=== PATIENT | male | born 1945 | race Caucasian/White ===

== ENCOUNTER 2022-01-30 08:35 | Inpatient (IN) ==
[2022-01-30] MEDS ORDERED: ONDANSETRON 4 MG/2 ML VIAL IV PRN (10:37)
[2022-01-30] MEDS: SODIUM CHLORIDE 0.9% 1,000 ML IV SCH ×2 (11:49→20:00)
[2022-01-30 12:18] LABS: Basophils % 0.6 % (0.0-0.8); Hematocrit 42.8 VOL% (42.0-52.0); Hemoglobin 14.4 GM/DL (14.0-18.0); Immature Granulocytes Absolute 0.05 #; Lymphocytes # 0.6 10*3/uL (1.4-4.0); Lymphocytes % 10.9 % (21.2-54.2); Mean Corpuscular HGB Conc 33.6 GM/DL (32-36); Mean Corpuscular Volume 82.5 FL (87-102); Mean Platelet Volume 10.5 FL (9.6-12.0); Monocytes # 0.6 10*3/uL (0.11-0.8); Monocytes % 10.7 % (1.7-12.7); Neutrophils % 76.8 % (38.7-73.9); Platelet Count 173 T/CUMM (130-400); Red Blood Count 5.19 MC/CUMM (3.8-5.5); Red Cell Distribution Width 14.3 % (9.3-17.3); White Blood Count 5.2 T/CUMM (4-12)
[2022-01-30 12:36] LABS: Albumin 3.2 G/DL (3.4-5.0); Bilirubin,Total 0.6 MG/DL (0.20-1.00); Calcium 8.8 MG/DL (8.5-10.1); Osmolality,Calculated 271.2 MOS/KG (273-304); Potassium 3.6 MMOL/L (3.5-5.1)
[2022-01-30 12:38] LABS: Anisocytosis Slight; Band Neutrophils 17 % (0-10); Lymphocytes 13 % (20-55); Platelet Estimate Normal; Total Cells Counted 100
[2022-01-30] MEDS: cefTRIAXone 2,000 MG in SODIUM CHLORIDE 0.9% 100 ML IV SCH (12:57)
[2022-01-30] MEDS ORDERED: SODIUM CHLORIDE 0.9% 1,000 ML IV ONE (13:30)
[2022-01-30] MEDS ORDERED: DEXTROSE 10% 250 ML BAG IV PRN (13:43)
[2022-01-30] MEDS ORDERED: GLUCAGON 1 MG VIAL IM PRN (13:43)
[2022-01-30 14:55] LABS: Bacteria,Urine Occasional /HPF (Few); Bilirubin,Urine Negative (Negative); Blood, Urine Trace mg/dL (Negative); Glucose,Urine (UA) Negative (Negative); Ketones,Urine Trace mg/dL (Negative); Mucus,Urine Occasional /LPF (Occasional); Nitrite,Urine Negative (Negative); Protein,Urine 30 mg/dL (Negative); RBC,Urine 2 /HPF (0-4); Squamous Epithelial Cell,Urine Occasional /HPF (0-10); Urine Appearance Clear (Clear); Urine Color Yellow (Yellow); Urine Specific Gravity > 1.030 (1.001-1.035); Urine Urobilinogen 0.2 eU/dL (<2.0); Urine pH 5.5 (4.5-8.0)
[2022-01-30] MEDS: INSULIN LISPRO 100 UNIT/ML SUBCUT SCH (16:28)
[2022-01-30] MEDS: VANCOMYCIN INJ 1,250 MG in SODIUM CHLORIDE 0.9% 250 ML IV SCH (17:14)
[2022-01-30] MEDS: MELATONIN 3 MG TABLET PO PRN (21:24)
[2022-01-30] MEDS: DOCUSATE SODIUM 100 MG CAPSULE PO SCH (21:24)
[2022-01-30] MEDS: ACETAMINOPHEN 325 MG TABLET PO PRN (21:24)
[2022-01-30] MEDS: ENOXAPARIN 40 MG/0.4 ML SYRINGE SUBCUT SCH (21:24)
[2022-01-30] MEDS: SIMVASTATIN 40 MG TABLET PO SCH (21:24)
[2022-01-31] MEDS: SODIUM CHLORIDE 0.9% 1,000 ML IV SCH ×3 (03:01→20:43)
[2022-01-31 05:28] LABS: Basophils % 0.4 % (0.0-0.8); Hematocrit 39.6 VOL% (42.0-52.0); Hemoglobin 13.2 GM/DL (14.0-18.0); Immature Granulocytes Absolute 0.05 #; Lymphocytes # 0.5 10*3/uL (1.4-4.0); Lymphocytes % 9.7 % (21.2-54.2); Mean Corpuscular HGB Conc 33.3 GM/DL (32-36); Mean Corpuscular Volume 82.5 FL (87-102); Mean Platelet Volume 11.5 FL (9.6-12.0); Monocytes # 0.8 10*3/uL (0.11-0.8); Monocytes % 15.9 % (1.7-12.7); Platelet Count 138 T/CUMM (130-400); Red Cell Distribution Width 14.4 % (9.3-17.3)
[2022-01-31 05:43] LABS: Calcium 8.5 MG/DL (8.5-10.1); Osmolality,Calculated 271.1 MOS/KG (273-304); Potassium 3.4 MMOL/L (3.5-5.1)
[2022-01-31 07:09] LABS: Band Neutrophils 6 % (0-10); Lymphocytes 10 % (20-55); Platelet Estimate Normal; Total Cells Counted 100
[2022-01-31] MEDS: INSULIN LISPRO 100 UNIT/ML SUBCUT SCH ×2 (07:57→17:12)
[2022-01-31] MEDS: DOCUSATE SODIUM 100 MG CAPSULE PO SCH ×2 (09:38→20:42)
[2022-01-31] MEDS: OXYBUTYNIN XL 10 MG TABLET PO SCH (09:38)
[2022-01-31] MEDS: TAMSULOSIN 0.4 MG CAPSULE PO SCH (09:38)
[2022-01-31] MEDS: PANTOPRAZOLE 40 MG TABLET PO SCH (09:38)
[2022-01-31] MEDS: cefTRIAXone 2,000 MG in SODIUM CHLORIDE 0.9% 100 ML IV SCH ×3 (09:39→22:58)
[2022-01-31] MEDS: METOPROLOL SUCCINATE XL 25 MG TABLET PO SCH (09:39)
[2022-01-31] MEDS: ACETAMINOPHEN 325 MG TABLET PO PRN ×2 (09:57→17:47)
[2022-01-31 10:10] LABS: PT Patient Result 11.4 SECS (10.1-12.1)
[2022-01-31 13:27] LABS: Glucose,CSF 77 MG/DL (40-70)
[2022-01-31 13:53] LABS: Appearance,CSF Clear; Lymphocytes,CSF 42 %; Monocytes,CSF 58 %; Red Blood Cell,CSF < 1 C/CUMM; White Blood Cell,CSF 2 C/CUMM
[2022-01-31] MEDS: AMPICILLIN INJ 2,000 MG in SODIUM CHLORIDE 0.9% 100 ML IV SCH ×4 (14:47→22:58)
[2022-01-31] MEDS: ACYCLOVIR INJ 700 MG in SODIUM CHLORIDE 0.9% 250 ML IV SCH ×2 (14:47→20:43)
[2022-01-31] MEDS: VANCOMYCIN INJ 1,250 MG in SODIUM CHLORIDE 0.9% 250 ML IV SCH (17:45)
[2022-01-31] MEDS: SIMVASTATIN 40 MG TABLET PO SCH (20:42)
[2022-02-01] MEDS: AMPICILLIN INJ 2,000 MG in SODIUM CHLORIDE 0.9% 100 ML IV SCH ×6 (02:36→22:11)
[2022-02-01] MEDS: ACYCLOVIR INJ 700 MG in SODIUM CHLORIDE 0.9% 250 ML IV SCH ×3 (02:36→18:36)
[2022-02-01 03:23] LABS: Basophils % 0.4 % (0.0-0.8); Hematocrit 35.9 VOL% (42.0-52.0); Hemoglobin 12.1 GM/DL (14.0-18.0); Immature Granulocytes % 0.6 %; Immature Granulocytes Absolute 0.03 #; Lymphocytes # 0.6 10*3/uL (1.4-4.0); Lymphocytes % 11.7 % (21.2-54.2); Mean Corpuscular HGB Conc 33.7 GM/DL (32-36); Mean Corpuscular Volume 81.8 FL (87-102); Mean Platelet Volume 11.5 FL (9.6-12.0); Monocytes # 0.8 10*3/uL (0.11-0.8); Monocytes % 14.9 % (1.7-12.7); Neutrophils % 72.4 % (38.7-73.9); Platelet Count 130 T/CUMM (130-400); Red Blood Count 4.39 MC/CUMM (3.8-5.5); Red Cell Distribution Width 14.5 % (9.3-17.3)
[2022-02-01 03:40] LABS: Albumin 2.3 G/DL (3.4-5.0); Bilirubin,Total 0.4 MG/DL (0.20-1.00); Calcium 7.3 MG/DL (8.5-10.1); Osmolality,Calculated 277.5 MOS/KG (273-304); Phosphorous 2.8 MG/DL (2.5-4.9); Potassium 3.4 MMOL/L (3.5-5.1); Total Protein 5.6 G/DL (6.4-8.2)
[2022-02-01 03:55] LABS: Band Neutrophils 8 % (0-10); Eosinophils 1 % (0-10); Lymphocytes 8 % (20-55); Total Cells Counted 100
[2022-02-01 03:56] LABS: Microcytosis Slight
[2022-02-01] MEDS ORDERED: MAGNESIUM SULF RIDER 2 GM/50 ML PREMIX IV PRN (04:04)
[2022-02-01] MEDS ORDERED: MAGNESIUM SULF RIDER 4 GM/100 ML PREMIX IV PRN (04:04)
[2022-02-01] MEDS: SODIUM CHLORIDE 0.9% 1,000 ML IV SCH (04:54)
[2022-02-01] MEDS: VANCOMYCIN INJ 1,250 MG in SODIUM CHLORIDE 0.9% 250 ML IV SCH (04:55)
[2022-02-01] MEDS: PANTOPRAZOLE 40 MG TABLET PO SCH (06:32)
[2022-02-01] MEDS: POTASSIUM CHLORIDE 20 MEQ TABLET PO PRN ×3 (07:45→12:30)
[2022-02-01] MEDS: INSULIN LISPRO 100 UNIT/ML SUBCUT SCH ×2 (07:58→17:02)
[2022-02-01] MEDS: METOPROLOL SUCCINATE XL 25 MG TABLET PO SCH (08:23)
[2022-02-01] MEDS: OXYBUTYNIN XL 10 MG TABLET PO SCH (08:24)
[2022-02-01] MEDS: DOCUSATE SODIUM 100 MG CAPSULE PO SCH ×2 (08:24→21:00)
[2022-02-01] MEDS: TAMSULOSIN 0.4 MG CAPSULE PO SCH (08:24)
[2022-02-01] MEDS: cefTRIAXone 2,000 MG in SODIUM CHLORIDE 0.9% 100 ML IV SCH ×2 (11:40→21:00)
[2022-02-01] MEDS ORDERED: FUROSEMIDE 40 MG/4 ML VIAL IV ONE ×2 (14:35→21:00)
[2022-02-01] MEDS ORDERED: FUROSEMIDE 40 MG/4 ML VIAL ONE (14:36)
[2022-02-01] MEDS: ACETAMINOPHEN 325 MG TABLET PO PRN ×2 (15:14→23:44)
[2022-02-01] MEDS: ENOXAPARIN 40 MG/0.4 ML SYRINGE SUBCUT SCH (21:01)
[2022-02-01 21:56] LABS: Bacteria,Urine Occasional /HPF (Few); Bilirubin,Urine Negative (Negative); Blood, Urine Trace mg/dL (Negative); Glucose,Urine (UA) Negative (Negative); Ketones,Urine Negative (Negative); Mucus,Urine Occasional /LPF (Occasional); Nitrite,Urine Negative (Negative); Protein,Urine 30 mg/dL (Negative); RBC,Urine <1 /HPF (0-4); Squamous Epithelial Cell,Urine Occasional /HPF (0-10); Urine Appearance Clear (Clear); Urine Color Yellow (Yellow)
[2022-02-01 21:57] LABS: Urine Urobilinogen 0.2 eU/dL (<2.0)
[2022-02-02] MEDS: ACYCLOVIR INJ 700 MG in SODIUM CHLORIDE 0.9% 250 ML IV SCH ×3 (02:19→18:07)
[2022-02-02] MEDS: AMPICILLIN INJ 2,000 MG in SODIUM CHLORIDE 0.9% 100 ML IV SCH ×6 (02:19→22:09)
[2022-02-02 04:30] LABS: Albumin 2.1 G/DL (3.4-5.0); Basophils % 0.3 % (0.0-0.8); Bilirubin,Total 0.4 MG/DL (0.20-1.00); Calcium 7.3 MG/DL (8.5-10.1); Hematocrit 36.2 VOL% (42.0-52.0); Hemoglobin 11.8 GM/DL (14.0-18.0); Immature Granulocytes % 0.3 %; Immature Granulocytes Absolute 0.02 #; Mean Corpuscular HGB Conc 32.6 GM/DL (32-36); Mean Corpuscular Volume 83.8 FL (87-102); Mean Platelet Volume 12.3 FL (9.6-12.0); Monocytes # 1.1 10*3/uL (0.11-0.8); Neutrophils % 68.4 % (38.7-73.9); Osmolality,Calculated 276.8 MOS/KG (273-304); Phosphorous 3.1 MG/DL (2.5-4.9); Platelet Count 120 T/CUMM (130-400); Potassium 2.9 MMOL/L (3.5-5.1); Red Blood Count 4.32 MC/CUMM (3.8-5.5); Red Cell Distribution Width 14.6 % (9.3-17.3); Total Protein 5.4 G/DL (6.4-8.2); White Blood Count 6.8 T/CUMM (4-12)
[2022-02-02 04:35] LABS: Band Neutrophils 2 % (0-10); Eosinophils 1 % (0-10); Hypochromia Slight; Lymphocytes 15 % (20-55); Microcytosis Slight; Total Cells Counted 100
[2022-02-02 04:36] LABS: Atypical Lymphocytes Few; Platelet Estimate Adequate
[2022-02-02] MEDS: POTASSIUM CHLORIDE 20 MEQ TABLET PO PRN ×4 (04:46→11:30)
[2022-02-02] MEDS: PANTOPRAZOLE 40 MG TABLET PO SCH (06:35)
[2022-02-02] MEDS: INSULIN LISPRO 100 UNIT/ML SUBCUT SCH ×2 (07:34→16:46)
[2022-02-02] MEDS: TAMSULOSIN 0.4 MG CAPSULE PO SCH (08:49)
[2022-02-02] MEDS: DOCUSATE SODIUM 100 MG CAPSULE PO SCH ×2 (08:49→20:49)
[2022-02-02] MEDS: METOPROLOL SUCCINATE XL 25 MG TABLET PO SCH (08:50)
[2022-02-02] MEDS: OXYBUTYNIN XL 10 MG TABLET PO SCH (08:50)
[2022-02-02] MEDS: cefTRIAXone 2,000 MG in SODIUM CHLORIDE 0.9% 100 ML IV SCH ×2 (09:38→22:08)
[2022-02-02] MEDS: ACETAMINOPHEN 325 MG TABLET PO PRN (09:42)
[2022-02-02] MEDS ORDERED: FUROSEMIDE 40 MG/4 ML VIAL IV ONE (10:38)
[2022-02-02] MEDS: LEVOFLOXACIN INJ 500 MG/100 ML PREMIX IV SCH (11:07)
[2022-02-02] MEDS ORDERED: ALUMINUM/MAGNES/SIMETH MAX STR 30 ML UDCUP PO PRN (17:43)
[2022-02-02] MEDS: DIAZEPAM 5 MG TABLET PO PRN (18:06)
[2022-02-02] MEDS: ENOXAPARIN 40 MG/0.4 ML SYRINGE SUBCUT SCH (20:49)
[2022-02-03] MEDS: ACYCLOVIR INJ 700 MG in SODIUM CHLORIDE 0.9% 250 ML IV SCH ×3 (02:04→18:16)
[2022-02-03] MEDS: AMPICILLIN INJ 2,000 MG in SODIUM CHLORIDE 0.9% 100 ML IV SCH ×3 (02:04→11:29)
[2022-02-03] MEDS: DIAZEPAM 5 MG TABLET PO PRN ×2 (02:06→08:21)
[2022-02-03 03:17] LABS: ABG Base Excess 2.9 MMOL/L (-2.5-2.5); ABG HCO3 26.9 MMOL/L (20-26); ABG Oxygen Saturation 93.9 % (95-100); ABG PCO2 35.7 MM HG (35-48); ABG PH 7.475 (7.35-7.45); ABG PO2 70.2 MM HG (80-95)
[2022-02-03 04:51] LABS: Basophils % 0.4 % (0.0-0.8); Eosinophils % 0.1 % (0.00-10.9); Hematocrit 41.6 VOL% (42.0-52.0); Hemoglobin 13.9 GM/DL (14.0-18.0); Immature Granulocytes % 0.7 %; Immature Granulocytes Absolute 0.07 #; Lymphocytes # 1.2 10*3/uL (1.4-4.0); Lymphocytes % 11.5 % (21.2-54.2); Mean Corpuscular HGB Conc 33.4 GM/DL (32-36); Mean Corpuscular Volume 82.1 FL (87-102); Mean Platelet Volume 12.7 FL (9.6-12.0); Monocytes # 1.3 10*3/uL (0.11-0.8); Neutrophils % 74.3 % (38.7-73.9); Red Blood Count 5.07 MC/CUMM (3.8-5.5); Red Cell Distribution Width 14.4 % (9.3-17.3); White Blood Count 10.1 T/CUMM (4-12)
[2022-02-03 04:59] LABS: Platelet Count 115 T/CUMM (130-400)
[2022-02-03 05:12] LABS: Albumin 2.2 G/DL (3.4-5.0); Bilirubin,Total 0.6 MG/DL (0.20-1.00); Calcium 8.2 MG/DL (8.5-10.1); Osmolality,Calculated 269.2 MOS/KG (273-304); Phosphorous 2.1 MG/DL (2.5-4.9); Potassium 3.3 MMOL/L (3.5-5.1); Total Protein 6.4 G/DL (6.4-8.2)
[2022-02-03] MEDS ORDERED: FUROSEMIDE 100 MG/10 ML VIAL ONE (05:49)
[2022-02-03] MEDS ORDERED: FUROSEMIDE 40 MG/4 ML VIAL IV ONE (05:49)
[2022-02-03] MEDS: guaiFENesin 200 MG/10 ML UDCUP PO PRN ×2 (06:37→13:20)
[2022-02-03] MEDS: POTASSIUM CHLORIDE 20 MEQ TABLET PO PRN ×5 (06:37→22:03)
[2022-02-03] MEDS: PANTOPRAZOLE 40 MG TABLET PO SCH (06:37)
[2022-02-03] MEDS: ALBUTEROL/IPRATROPIUM 3 ML NEB RESP TX SCH ×3 (07:20→18:52)
[2022-02-03] MEDS: LEVALBUTEROL 1.25 MG/3 ML NEB RESP TX ONE ×2 (07:20→11:30)
[2022-02-03] MEDS: TAMSULOSIN 0.4 MG CAPSULE PO SCH (08:17)
[2022-02-03] MEDS: METOPROLOL SUCCINATE XL 25 MG TABLET PO SCH (08:17)
[2022-02-03] MEDS: OXYBUTYNIN XL 10 MG TABLET PO SCH (08:17)
[2022-02-03] MEDS: INSULIN LISPRO 100 UNIT/ML SUBCUT SCH ×2 (08:17→16:13)
[2022-02-03] MEDS: DOCUSATE SODIUM 100 MG CAPSULE PO SCH ×2 (08:18→20:37)
[2022-02-03] MEDS: cefTRIAXone 2,000 MG in SODIUM CHLORIDE 0.9% 100 ML IV SCH (09:38)
[2022-02-03] MEDS: LEVOFLOXACIN INJ 500 MG/100 ML PREMIX IV SCH (11:29)
[2022-02-03] MEDS: ENOXAPARIN 40 MG/0.4 ML SYRINGE SUBCUT SCH (20:37)
[2022-02-03 22:47] LABS: M. Tuberculosis PCR Result Negative (Negative); M. Tuberculosis PCR Source CSF
[2022-02-04] MEDS: ALBUTEROL/IPRATROPIUM 3 ML NEB RESP TX SCH ×4 (00:26→19:00)
[2022-02-04] MEDS: ACYCLOVIR INJ 700 MG in SODIUM CHLORIDE 0.9% 250 ML IV SCH ×3 (02:12→18:14)
[2022-02-04 03:22] LABS: Arterial Base Excess iSTAT -1 MMOL/L (-2.5-2.5); Arterial Bicarbonate iSTAT 22.5 MMOL/L (20-26); Arterial O2 Saturation iSTAT 97 % (95-100); Arterial PCO2 iSTAT 33 MM HG (35-48); Arterial PO2 iSTAT 90 MM HG (80-95); Arterial Total CO2 iSTAT 23 MMO/L (23-27); Arterial pH iSTAT 7.443 (7.35-7.45)
[2022-02-04 03:51] LABS: Basophils % 0.3 % (0.0-0.8); Hematocrit 37.9 VOL% (42.0-52.0); Hemoglobin 12.5 GM/DL (14.0-18.0); Immature Granulocytes % 0.7 %; Immature Granulocytes Absolute 0.08 #; Lymphocytes # 1.2 10*3/uL (1.4-4.0); Lymphocytes % 10.6 % (21.2-54.2); Mean Corpuscular Volume 83.7 FL (87-102); Mean Platelet Volume 12.5 FL (9.6-12.0); Monocytes # 1.3 10*3/uL (0.11-0.8); Monocytes % 11.2 % (1.7-12.7); Neutrophils % 77.2 % (38.7-73.9); Platelet Count 225 T/CUMM (130-400); Red Blood Count 4.53 MC/CUMM (3.8-5.5); Red Cell Distribution Width 14.6 % (9.3-17.3); White Blood Count 11.6 T/CUMM (4-12)
[2022-02-04 04:13] LABS: Potassium 3.7 MMOL/L (3.5-5.1)
[2022-02-04] MEDS: LEVOFLOXACIN 750 MG TABLET PO SCH (08:10)
[2022-02-04] MEDS: METOPROLOL SUCCINATE XL 25 MG TABLET PO SCH (08:10)
[2022-02-04] MEDS: amLODIPine 10 MG TABLET PO SCH (08:10)
[2022-02-04] MEDS: TAMSULOSIN 0.4 MG CAPSULE PO SCH (08:10)
[2022-02-04] MEDS: DOCUSATE SODIUM 100 MG CAPSULE PO SCH ×2 (08:10→20:44)
[2022-02-04] MEDS: PANTOPRAZOLE 40 MG TABLET PO SCH (08:10)
[2022-02-04] MEDS: OXYBUTYNIN XL 10 MG TABLET PO SCH (08:10)
[2022-02-04] MEDS: POLYETHYLENE GLYCOL POWDER 17 GM PACK PO SCH (08:12)
[2022-02-04] MEDS: POTASSIUM CHLORIDE 20 MEQ TABLET PO PRN (08:20)
[2022-02-04] MEDS: INSULIN LISPRO 100 UNIT/ML SUBCUT SCH ×2 (08:22→16:11)
[2022-02-04] MEDS ORDERED: FUROSEMIDE 40 MG/4 ML VIAL IV ONE (12:38)
[2022-02-04] MEDS: SIMVASTATIN 40 MG TABLET PO SCH (20:44)
[2022-02-04] MEDS: ENOXAPARIN 40 MG/0.4 ML SYRINGE SUBCUT SCH (20:44)
[2022-02-05] MEDS: ALBUTEROL/IPRATROPIUM 3 ML NEB RESP TX SCH ×4 (00:40→20:32)
[2022-02-05] MEDS: ACYCLOVIR INJ 700 MG in SODIUM CHLORIDE 0.9% 250 ML IV SCH ×3 (03:58→18:41)
[2022-02-05 06:22] LABS: Hematocrit 38.2 VOL% (42.0-52.0); Hemoglobin 12.3 GM/DL (14.0-18.0); Mean Corpuscular HGB Conc 32.2 GM/DL (32-36); Mean Corpuscular Volume 83.4 FL (87-102); Platelet Count 238 T/CUMM (130-400); Red Blood Count 4.58 MC/CUMM (3.8-5.5); Red Cell Distribution Width 14.4 % (9.3-17.3); White Blood Count 9.9 T/CUMM (4-12)
[2022-02-05 06:23] LABS: Basophils % 0.4 % (0.0-0.8); Immature Granulocytes % 1.3 %; Immature Granulocytes Absolute 0.13 #; Lymphocytes # 1.2 10*3/uL (1.4-4.0); Lymphocytes % 12.1 % (21.2-54.2); Mean Platelet Volume 12.2 FL (9.6-12.0); Monocytes # 1.2 10*3/uL (0.11-0.8); Monocytes % 12.4 % (1.7-12.7); Neutrophils % 73.8 % (38.7-73.9)
[2022-02-05 06:43] LABS: Albumin 2.2 G/DL (3.4-5.0); Bilirubin,Total 0.6 MG/DL (0.20-1.00); Calcium 8.2 MG/DL (8.5-10.1); Osmolality,Calculated 276.8 MOS/KG (273-304); Potassium 3.7 MMOL/L (3.5-5.1); Total Protein 6.5 G/DL (6.4-8.2)
[2022-02-05] MEDS: PANTOPRAZOLE 40 MG TABLET PO SCH (07:58)
[2022-02-05] MEDS: DOCUSATE SODIUM 100 MG CAPSULE PO SCH ×2 (07:59→22:14)
[2022-02-05] MEDS: INSULIN LISPRO 100 UNIT/ML SUBCUT SCH ×2 (07:59→16:49)
[2022-02-05] MEDS: OXYBUTYNIN XL 10 MG TABLET PO SCH (07:59)
[2022-02-05] MEDS: amLODIPine 10 MG TABLET PO SCH (08:00)
[2022-02-05] MEDS: LEVOFLOXACIN 750 MG TABLET PO SCH (08:00)
[2022-02-05] MEDS: TAMSULOSIN 0.4 MG CAPSULE PO SCH (08:00)
[2022-02-05] MEDS: METOPROLOL SUCCINATE XL 25 MG TABLET PO SCH (08:01)
[2022-02-05] MEDS: POTASSIUM CHLORIDE 20 MEQ TABLET PO PRN (08:01)
[2022-02-05] MEDS: POLYETHYLENE GLYCOL POWDER 17 GM PACK PO SCH (08:12)
[2022-02-05] MEDS: lisinopriL 10 MG TABLET PO SCH (08:35)
[2022-02-05] MEDS: metFORMIN 500 MG TABLET PO SCH ×2 (08:35→22:10)
[2022-02-05] MEDS: SIMVASTATIN 40 MG TABLET PO SCH (22:10)
[2022-02-05] MEDS: ENOXAPARIN 40 MG/0.4 ML SYRINGE SUBCUT SCH (22:14)
[2022-02-06] MEDS: ALBUTEROL/IPRATROPIUM 3 ML NEB RESP TX SCH ×4 (00:45→19:24)
[2022-02-06] MEDS: ACYCLOVIR INJ 700 MG in SODIUM CHLORIDE 0.9% 250 ML IV SCH ×3 (03:36→18:55)
[2022-02-06 06:03] LABS: Basophils # 0.1 10*3/uL (0.0-0.2); Basophils % 0.6 % (0.0-0.8); Hematocrit 36.1 VOL% (42.0-52.0); Hemoglobin 11.9 GM/DL (14.0-18.0); Lymphocytes # 1.6 10*3/uL (1.4-4.0); Lymphocytes % 16.3 % (21.2-54.2); Mean Corpuscular Volume 82.6 FL (87-102); Mean Platelet Volume 11.2 FL (9.6-12.0); Monocytes # 1.5 10*3/uL (0.11-0.8); Neutrophils % 66.1 % (38.7-73.9); Platelet Count 386 T/CUMM (130-400); Red Blood Count 4.37 MC/CUMM (3.8-5.5); Red Cell Distribution Width 14.9 % (9.3-17.3)
[2022-02-06 06:39] LABS: Calcium 8.6 MG/DL (8.5-10.1); Osmolality,Calculated 276.7 MOS/KG (273-304); Potassium 3.7 MMOL/L (3.5-5.1)
[2022-02-06] MEDS: INSULIN LISPRO 100 UNIT/ML SUBCUT SCH ×2 (07:40→16:02)
[2022-02-06] MEDS: OXYBUTYNIN XL 10 MG TABLET PO SCH (08:29)
[2022-02-06] MEDS: lisinopriL 10 MG TABLET PO SCH (08:29)
[2022-02-06] MEDS: LEVOFLOXACIN 750 MG TABLET PO SCH (08:29)
[2022-02-06] MEDS: DOCUSATE SODIUM 100 MG CAPSULE PO SCH ×2 (08:29→20:15)
[2022-02-06] MEDS: metFORMIN 500 MG TABLET PO SCH ×2 (08:30→20:15)
[2022-02-06] MEDS: METOPROLOL SUCCINATE XL 25 MG TABLET PO SCH (08:30)
[2022-02-06] MEDS: PANTOPRAZOLE 40 MG TABLET PO SCH (08:30)
[2022-02-06] MEDS: TAMSULOSIN 0.4 MG CAPSULE PO SCH (08:30)
[2022-02-06] MEDS: amLODIPine 10 MG TABLET PO SCH (08:30)
[2022-02-06] MEDS: POLYETHYLENE GLYCOL POWDER 17 GM PACK PO SCH (08:42)
[2022-02-06] MEDS: ENOXAPARIN 40 MG/0.4 ML SYRINGE SUBCUT SCH (20:15)
[2022-02-06] MEDS: SIMVASTATIN 40 MG TABLET PO SCH (20:15)
[2022-02-07] MEDS: ALBUTEROL/IPRATROPIUM 3 ML NEB RESP TX SCH ×4 (00:34→19:05)
[2022-02-07] MEDS: ACYCLOVIR INJ 700 MG in SODIUM CHLORIDE 0.9% 250 ML IV SCH ×3 (03:13→20:35)
[2022-02-07 05:57] LABS: Calcium 8.4 MG/DL (8.5-10.1); Osmolality,Calculated 279.4 MOS/KG (273-304); Potassium 3.7 MMOL/L (3.5-5.1)
[2022-02-07] MEDS: INSULIN LISPRO 100 UNIT/ML SUBCUT SCH ×2 (08:26→18:48)
[2022-02-07] MEDS: OXYBUTYNIN XL 10 MG TABLET PO SCH (09:21)
[2022-02-07] MEDS: lisinopriL 10 MG TABLET PO SCH (09:22)
[2022-02-07] MEDS: metFORMIN 500 MG TABLET PO SCH ×2 (09:22→20:36)
[2022-02-07] MEDS: TAMSULOSIN 0.4 MG CAPSULE PO SCH (09:22)
[2022-02-07] MEDS: amLODIPine 10 MG TABLET PO SCH (09:22)
[2022-02-07] MEDS: PANTOPRAZOLE 40 MG TABLET PO SCH (09:22)
[2022-02-07] MEDS: LEVOFLOXACIN 750 MG TABLET PO SCH (09:22)
[2022-02-07] MEDS: METOPROLOL SUCCINATE XL 25 MG TABLET PO SCH (09:22)
[2022-02-07] MEDS: POLYETHYLENE GLYCOL POWDER 17 GM PACK PO SCH (09:24)
[2022-02-07] MEDS: DOCUSATE SODIUM 100 MG CAPSULE PO SCH ×2 (09:24→20:36)
[2022-02-07] MEDS: guaiFENesin 200 MG/10 ML UDCUP PO PRN (20:36)
[2022-02-07] MEDS: SIMVASTATIN 40 MG TABLET PO SCH (20:36)
[2022-02-07] MEDS: ENOXAPARIN 40 MG/0.4 ML SYRINGE SUBCUT SCH (20:37)
[2022-02-08] MEDS: ALBUTEROL/IPRATROPIUM 3 ML NEB RESP TX SCH ×4 (00:23→19:25)
[2022-02-08] MEDS: ACYCLOVIR INJ 700 MG in SODIUM CHLORIDE 0.9% 250 ML IV SCH ×3 (02:53→18:03)
[2022-02-08] MEDS: guaiFENesin 200 MG/10 ML UDCUP PO PRN (05:37)
[2022-02-08 06:20] LABS: Calcium 8.5 MG/DL (8.5-10.1); Osmolality,Calculated 278.4 MOS/KG (273-304); Potassium 3.6 MMOL/L (3.5-5.1)
[2022-02-08] MEDS: PANTOPRAZOLE 40 MG TABLET PO SCH (08:27)
[2022-02-08] MEDS: OXYBUTYNIN XL 10 MG TABLET PO SCH (08:27)
[2022-02-08] MEDS: LEVOFLOXACIN 750 MG TABLET PO SCH (08:27)
[2022-02-08] MEDS: lisinopriL 10 MG TABLET PO SCH (08:27)
[2022-02-08] MEDS: metFORMIN 500 MG TABLET PO SCH ×2 (08:27→21:06)
[2022-02-08] MEDS: POLYETHYLENE GLYCOL POWDER 17 GM PACK PO SCH (08:28)
[2022-02-08] MEDS: METOPROLOL SUCCINATE XL 25 MG TABLET PO SCH (08:28)
[2022-02-08] MEDS: DOCUSATE SODIUM 100 MG CAPSULE PO SCH ×2 (08:28→21:06)
[2022-02-08] MEDS: TAMSULOSIN 0.4 MG CAPSULE PO SCH (08:28)
[2022-02-08] MEDS: amLODIPine 10 MG TABLET PO SCH (08:28)
[2022-02-08] MEDS: INSULIN LISPRO 100 UNIT/ML SUBCUT SCH ×2 (08:29→17:02)
[2022-02-08] MEDS: POTASSIUM CHLORIDE 20 MEQ TABLET PO PRN (10:31)
[2022-02-08] MEDS: SIMVASTATIN 40 MG TABLET PO SCH (21:06)
[2022-02-08] MEDS: ENOXAPARIN 40 MG/0.4 ML SYRINGE SUBCUT SCH (21:06)
[2022-02-09] MEDS: ALBUTEROL/IPRATROPIUM 3 ML NEB RESP TX SCH ×5 (00:13→23:58)
[2022-02-09] MEDS: ACYCLOVIR INJ 700 MG in SODIUM CHLORIDE 0.9% 250 ML IV SCH ×3 (03:34→18:05)
[2022-02-09] MEDS: INSULIN LISPRO 100 UNIT/ML SUBCUT SCH ×2 (09:09→17:55)
[2022-02-09] MEDS: lisinopriL 10 MG TABLET PO SCH (09:39)
[2022-02-09] MEDS: metFORMIN 500 MG TABLET PO SCH ×2 (09:39→21:03)
[2022-02-09] MEDS: POLYETHYLENE GLYCOL POWDER 17 GM PACK PO SCH ×2 (09:39→09:43)
[2022-02-09] MEDS: METOPROLOL SUCCINATE XL 25 MG TABLET PO SCH (09:40)
[2022-02-09] MEDS: TAMSULOSIN 0.4 MG CAPSULE PO SCH (09:40)
[2022-02-09] MEDS: amLODIPine 10 MG TABLET PO SCH (09:40)
[2022-02-09] MEDS: DOCUSATE SODIUM 100 MG CAPSULE PO SCH ×2 (09:40→21:02)
[2022-02-09] MEDS: LEVOFLOXACIN 750 MG TABLET PO SCH (09:40)
[2022-02-09] MEDS: OXYBUTYNIN XL 10 MG TABLET PO SCH (09:40)
[2022-02-09] MEDS: PANTOPRAZOLE 40 MG TABLET PO SCH (09:40)
[2022-02-09] MEDS: ENOXAPARIN 40 MG/0.4 ML SYRINGE SUBCUT SCH (21:03)
[2022-02-09] MEDS: SIMVASTATIN 40 MG TABLET PO SCH (21:03)
[2022-02-10] MEDS: ACYCLOVIR INJ 700 MG in SODIUM CHLORIDE 0.9% 250 ML IV SCH ×3 (03:15→18:16)
[2022-02-10] MEDS: ALBUTEROL/IPRATROPIUM 3 ML NEB RESP TX SCH (06:42)
[2022-02-10] MEDS ORDERED: ALBUTEROL/IPRATROPIUM 3 ML NEB RESP TX PRN (08:30)
[2022-02-10] MEDS: INSULIN LISPRO 100 UNIT/ML SUBCUT SCH ×2 (08:38→16:36)
[2022-02-10 09:12] LABS: Basophils # 0.1 10*3/uL (0.0-0.2); Basophils % 0.6 % (0.0-0.8); Hematocrit 38.7 VOL% (42.0-52.0); Hemoglobin 12.2 GM/DL (14.0-18.0); Immature Granulocytes % 1.3 %; Immature Granulocytes Absolute 0.12 #; Lymphocytes # 1.6 10*3/uL (1.4-4.0); Lymphocytes % 16.5 % (21.2-54.2); Mean Corpuscular HGB Conc 31.5 GM/DL (32-36); Mean Corpuscular Volume 85.6 FL (87-102); Mean Platelet Volume 10.2 FL (9.6-12.0); Monocytes % 9.9 % (1.7-12.7); Neutrophils % 71.7 % (38.7-73.9); Platelet Count 477 T/CUMM (130-400); Red Blood Count 4.52 MC/CUMM (3.8-5.5); Red Cell Distribution Width 15.3 % (9.3-17.3); White Blood Count 9.6 T/CUMM (4-12)
[2022-02-10 09:29] LABS: Calcium 9.4 MG/DL (8.5-10.1); Osmolality,Calculated 273.8 MOS/KG (273-304); Potassium 3.8 MMOL/L (3.5-5.1)
[2022-02-10] MEDS: OXYBUTYNIN XL 10 MG TABLET PO SCH (10:41)
[2022-02-10] MEDS: amLODIPine 10 MG TABLET PO SCH (10:41)
[2022-02-10] MEDS: metFORMIN 500 MG TABLET PO SCH ×2 (10:41→21:25)
[2022-02-10] MEDS: METOPROLOL SUCCINATE XL 25 MG TABLET PO SCH (10:41)
[2022-02-10] MEDS: LEVOFLOXACIN 750 MG TABLET PO SCH (10:41)
[2022-02-10] MEDS: TAMSULOSIN 0.4 MG CAPSULE PO SCH (10:42)
[2022-02-10] MEDS: DOCUSATE SODIUM 100 MG CAPSULE PO SCH ×2 (10:42→21:25)
[2022-02-10] MEDS: PANTOPRAZOLE 40 MG TABLET PO SCH (10:42)
[2022-02-10] MEDS: lisinopriL 10 MG TABLET PO SCH (10:42)
[2022-02-10] MEDS: POLYETHYLENE GLYCOL POWDER 17 GM PACK PO SCH (10:57)
[2022-02-10 18:53] LABS: Bilirubin,Urine Negative (Negative); Blood, Urine Negative (Negative); Glucose,Urine (UA) Negative (Negative); Ketones,Urine Negative (Negative); Nitrite,Urine Negative (Negative); Protein,Urine Negative (Negative); Urine Appearance Clear (Clear); Urine Color Yellow (Yellow); Urine Specific Gravity 1.015 (1.001-1.035); Urine Urobilinogen 0.2 eU/dL (<2.0)
[2022-02-10 18:55] LABS: RBC,Urine <1 /HPF (0-4)
[2022-02-10] MEDS: MELATONIN 3 MG TABLET PO PRN (21:24)
[2022-02-10] MEDS: ENOXAPARIN 40 MG/0.4 ML SYRINGE SUBCUT SCH (21:25)
[2022-02-10] MEDS: SIMVASTATIN 40 MG TABLET PO SCH (21:25)
[2022-02-11] MEDS: ACYCLOVIR INJ 700 MG in SODIUM CHLORIDE 0.9% 250 ML IV SCH ×3 (02:36→18:42)
[2022-02-11] MEDS: PANTOPRAZOLE 40 MG TABLET PO SCH (07:23)
[2022-02-11] MEDS: metFORMIN 500 MG TABLET PO SCH ×2 (09:27→21:11)
[2022-02-11] MEDS: DOCUSATE SODIUM 100 MG CAPSULE PO SCH ×2 (09:28→21:11)
[2022-02-11] MEDS: LEVOFLOXACIN 750 MG TABLET PO SCH (09:29)
[2022-02-11] MEDS: amLODIPine 10 MG TABLET PO SCH (09:29)
[2022-02-11] MEDS: lisinopriL 10 MG TABLET PO SCH (09:29)
[2022-02-11] MEDS: METOPROLOL SUCCINATE XL 25 MG TABLET PO SCH ×2 (09:29→21:10)
[2022-02-11] MEDS: INSULIN LISPRO 100 UNIT/ML SUBCUT SCH ×2 (09:31→18:51)
[2022-02-11] MEDS: POLYETHYLENE GLYCOL POWDER 17 GM PACK PO SCH (09:33)
[2022-02-11] MEDS: TAMSULOSIN 0.4 MG CAPSULE PO SCH (11:15)
[2022-02-11] MEDS ORDERED: OXYBUTYNIN XL 10 MG TABLET PO SCH (21:00)
[2022-02-11] MEDS ORDERED: TAMSULOSIN 0.4 MG CAPSULE PO SCH (21:00)
[2022-02-11] MEDS: ENOXAPARIN 40 MG/0.4 ML SYRINGE SUBCUT SCH (21:09)
[2022-02-11] MEDS: MELATONIN 3 MG TABLET PO PRN (21:10)
[2022-02-11] MEDS: SIMVASTATIN 40 MG TABLET PO SCH (21:11)
[2022-02-12] MEDS: ACYCLOVIR INJ 700 MG in SODIUM CHLORIDE 0.9% 250 ML IV SCH ×3 (03:24→18:34)
[2022-02-12 05:52] LABS: Basophils # 0.1 10*3/uL (0.0-0.2); Basophils % 0.8 % (0.0-0.8); Hemoglobin 12.3 GM/DL (14.0-18.0); Immature Granulocytes % 0.9 %; Immature Granulocytes Absolute 0.08 #; Lymphocytes # 1.7 10*3/uL (1.4-4.0); Lymphocytes % 18.2 % (21.2-54.2); Mean Corpuscular HGB Conc 31.5 GM/DL (32-36); Mean Corpuscular Volume 86.7 FL (87-102); Mean Platelet Volume 10.4 FL (9.6-12.0); Monocytes # 0.8 10*3/uL (0.11-0.8); Monocytes % 8.7 % (1.7-12.7); Neutrophils % 71.4 % (38.7-73.9); Platelet Count 490 T/CUMM (130-400); Red Cell Distribution Width 15.5 % (9.3-17.3); White Blood Count 9.2 T/CUMM (4-12)
[2022-02-12] MEDS: INSULIN LISPRO 100 UNIT/ML SUBCUT SCH ×2 (08:34→16:14)
[2022-02-12 09:11] LABS: Calcium 9.3 MG/DL (8.5-10.1); Osmolality,Calculated 274.7 MOS/KG (273-304); Potassium 4.4 MMOL/L (3.5-5.1)
[2022-02-12] MEDS: amLODIPine 10 MG TABLET PO SCH (10:12)
[2022-02-12] MEDS: METOPROLOL SUCCINATE XL 25 MG TABLET PO SCH ×2 (10:13→21:28)
[2022-02-12] MEDS: metFORMIN 500 MG TABLET PO SCH ×2 (10:13→21:28)
[2022-02-12] MEDS: PANTOPRAZOLE 40 MG TABLET PO SCH (10:13)
[2022-02-12] MEDS: lisinopriL 10 MG TABLET PO SCH (10:13)
[2022-02-12] MEDS: DOCUSATE SODIUM 100 MG CAPSULE PO SCH ×2 (10:13→21:28)
[2022-02-12] MEDS: POLYETHYLENE GLYCOL POWDER 17 GM PACK PO SCH (10:14)
[2022-02-12] MEDS: ENOXAPARIN 40 MG/0.4 ML SYRINGE SUBCUT SCH (21:27)
[2022-02-12] MEDS: SIMVASTATIN 40 MG TABLET PO SCH (21:28)
[2022-02-12] MEDS: TAMSULOSIN 0.4 MG CAPSULE PO SCH (21:28)
[2022-02-13] MEDS: ACYCLOVIR INJ 700 MG in SODIUM CHLORIDE 0.9% 250 ML IV SCH ×3 (03:27→18:11)
[2022-02-13] MEDS: INSULIN LISPRO 100 UNIT/ML SUBCUT SCH ×2 (07:54→16:16)
[2022-02-13] MEDS: metFORMIN 500 MG TABLET PO SCH ×2 (08:46→20:11)
[2022-02-13] MEDS: METOPROLOL SUCCINATE XL 25 MG TABLET PO SCH ×2 (08:46→20:11)
[2022-02-13] MEDS: lisinopriL 10 MG TABLET PO SCH (08:46)
[2022-02-13] MEDS: amLODIPine 10 MG TABLET PO SCH (08:46)
[2022-02-13] MEDS: DOCUSATE SODIUM 100 MG CAPSULE PO SCH ×2 (08:46→20:11)
[2022-02-13] MEDS: POLYETHYLENE GLYCOL POWDER 17 GM PACK PO SCH (08:46)
[2022-02-13] MEDS: TAMSULOSIN 0.4 MG CAPSULE PO SCH ×2 (08:46→20:11)
[2022-02-13] MEDS: PANTOPRAZOLE 40 MG TABLET PO SCH (08:46)
[2022-02-13] MEDS: SIMVASTATIN 40 MG TABLET PO SCH (20:11)
[2022-02-13] MEDS: ENOXAPARIN 40 MG/0.4 ML SYRINGE SUBCUT SCH (20:13)
[2022-02-14] MEDS: ACYCLOVIR INJ 700 MG in SODIUM CHLORIDE 0.9% 250 ML IV SCH ×2 (02:58→10:09)
[2022-02-14 06:41] LABS: Basophils # 0.1 10*3/uL (0.0-0.2); Basophils % 0.6 % (0.0-0.8); Hematocrit 38.5 VOL% (42.0-52.0); Hemoglobin 12.4 GM/DL (14.0-18.0); Immature Granulocytes % 0.6 %; Immature Granulocytes Absolute 0.06 #; Lymphocytes # 2.1 10*3/uL (1.4-4.0); Lymphocytes % 20.2 % (21.2-54.2); Mean Corpuscular HGB Conc 32.2 GM/DL (32-36); Mean Corpuscular Volume 85.2 FL (87-102); Mean Platelet Volume 10.1 FL (9.6-12.0); Monocytes # 0.7 10*3/uL (0.11-0.8); Monocytes % 6.9 % (1.7-12.7); Neutrophils % 71.7 % (38.7-73.9); Platelet Count 426 T/CUMM (130-400); Red Blood Count 4.52 MC/CUMM (3.8-5.5); Red Cell Distribution Width 15.7 % (9.3-17.3); White Blood Count 10.5 T/CUMM (4-12)
[2022-02-14] MEDS: INSULIN LISPRO 100 UNIT/ML SUBCUT SCH (07:53)
[2022-02-14] MEDS: PANTOPRAZOLE 40 MG TABLET PO SCH (08:15)
[2022-02-14 08:29] LABS: Calcium 8.6 MG/DL (8.5-10.1); Osmolality,Calculated 273.7 MOS/KG (273-304)
[2022-02-14 08:34] VITALS: BP 142/73
[2022-02-14] MEDS: POLYETHYLENE GLYCOL POWDER 17 GM PACK PO SCH (08:51)
[2022-02-14] MEDS: DOCUSATE SODIUM 100 MG CAPSULE PO SCH (08:52)
[2022-02-14] MEDS: METOPROLOL SUCCINATE XL 25 MG TABLET PO SCH (08:52)
[2022-02-14] MEDS: lisinopriL 10 MG TABLET PO SCH (08:52)
[2022-02-14] MEDS: amLODIPine 10 MG TABLET PO SCH (08:52)
[2022-02-14] MEDS: metFORMIN 500 MG TABLET PO SCH (08:53)
[2022-02-14] MEDS: TAMSULOSIN 0.4 MG CAPSULE PO SCH (08:53)
== END 2022-02-14 11:40 | disposition home or self-care (01) | DRG 75 ==
LOC: N.5E → OBSVTOIN 10:59 → SUATTDRO 10:59 → N.CC 01-31 18:55 → N.5E 02-05 18:23
PROVIDERS: ADMIT Internal Medicine; ATTEND Internal Medicine